=== PATIENT | female | born 1950 | race Asian ===

== ENCOUNTER 2017-01-02 16:12 | Emergency (ER) | payer MEDICARE ==
[~2017-01-02] VITALS: Ht 165.1 cm; Wt 56.7 kg
[2017-01-02 16:30] VITALS: BP 130/82
[2017-01-02] MEDS ORDERED: ATENOLOL25 MG ORAL (16:45)
[2017-01-02 16:59] VITALS: BP 175/80
[2017-01-02] MEDS ORDERED: Aspirin Baby 81mg ORAL ONE (17:00)
[2017-01-02] MEDS ORDERED: Nitroglycerin Subl 0.4mg tab (Bottle Of 25) SL PRN (17:00)
[2017-01-02 17:10] VITALS: BP 144/84
--- NOTE | 2017-01-02 17:10 | Emergency Room Report ---
History of Present Illness General Chief Complaint: General Complaint Source: Patient Present Illness HPI Patient is a 66-year-old female who presented after increased chest pain past 3 hours. Patient had onset of chest tightness which began during rest. Patient stated that she had been out of her atenolol and had a prior history of WPW. Patient stated that she previously had cardiology workup stone at [facility] [address] in [place]. The patient stated that she had prior ablation. The patient had a chest tightness as well as neck pain. This began approximately 3 hours ago. Allergies: Coded Allergies: SULFA (SULFONAMIDE ANTIBIOTICS) (Verified Allergy, Unknown, 01/02/17) Patient History Reviewed Nursing Documentation: PMH: Agreed, PSxH: Agreed Nursing Documentation-PMH Past Medical History: No History, Except For Hx Hypertension: Yes Review of Systems All Other Systems: negative except mentioned in HPI Physical Exam Vital Signs Date Time Temp Pulse Resp B/P Pulse Ox O2 Delivery O2 Flow Rate FiO2 01/02/17 16:25 99.1 78 22 130/82 98 Room Air Sp02 EP Interpretation: reviewed, normal General Appearance: normal inspection, well appearing, no apparent distress, alert, GCS 15 Head: atraumatic ENT: normal ENT inspection, hearing grossly normal, normal voice Neck: normal inspection, full range of motion, supple, no bony tend Respiratory: normal inspection, lungs clear, normal breath sounds, no respiratory distress, no retraction, no wheezing Cardiovascular #1: regular rate, rhythm, no edema Gastrointestinal: normal inspection, normal bowel sounds, non tender, soft, no guarding, no hernia Genitourinary: no CVA tenderness Musculoskeletal: normal inspection, back normal, normal range of motion Neurologic: normal inspection, alert, oriented x3, responsive, rehab nursing tech III-XII nml as tested, speech normal Psychiatric: normal inspection, judgement/insight normal, mood/affect normal Skin: normal inspection, normal color, no rash Medical Decision Making Diagnostic Impression: Primary Impression: STEMI (ST elevation myocardial infarction) Additional Impression: WPW (Nfykk-Wwxdulbei-Myqci syndrome) ER Course Patient presented for chest pain.Differential diagnosis included but was not limited to acute coronary syndrome, pulmonary embolism, pneumonia, aortic dissection, shingles, pneumothorax, aortic dissection, esophageal rupture, pericarditis. Because of complexity of patient's case laboratory testing and imaging studies were ordered. EKG interpreted by me showed anterior ST elevation with reciprocal changes inferiorly. [facility] was contacted for Dr. Dereck Person STEMI transfer. The patient be transferred [facility] prior level of care. Patient was given heparin as well as aspirin and nitroglycerin Labs Test 01/02/17 16:58 White Blood Count 8.7 K/UL (4.8-10.8) Red Blood Count 4.05 M/UL (4.20-5.40) Hemoglobin 15.0 G/DL (12.0-16.0) Hematocrit 40.6 % (37.0-47.0) Mean Corpuscular Volume 100 FL (80-99) Mean Corpuscular Hemoglobin 37.1 PG (27.0-31.0) Mean Corpuscular Hemoglobin Concent 37.0 G/DL (32.0-36.0) Red Cell Distribution Width 11.2 % (11.6-14.8) Platelet Count 189 K/UL (150-450) Mean Platelet Volume 8.4 FL (6.5-10.1) Neutrophils (%) (Auto) 64.0 % (45.0-75.0) Lymphocytes (%) (Auto) 28.4 % (20.0-45.0) Monocytes (%) (Auto) 5.5 % (1.0-10.0) Eosinophils (%) (Auto) 0.3 % (0.0-3.0) Basophils (%) (Auto) 1.7 % (0.0-2.0) Rhythm Strip Diag. Results EP Interpretation: yes Rhythm: NSR, no PVC's, no ectopy Chest X-Ray Diagnostic Results EP Interpretation: Yes Findings: no consolidation, no effusion, no pneumothorax, no acute cardiopulmonary disease Number of Views: 1 Last Vital Signs Date Time Temp Pulse Resp B/P Pulse Ox O2 Delivery O2 Flow Rate FiO2 01/02/17 16:30 99.1 78 22 130/82 98 Room Air Status: unchanged Disposition: XFER SHT-TRM HOSP Condition: Critical Scripts Atenolol* (TENORMIN*) 25 Mg Tablet 25 MG ORAL DAILY, #30 TAB Prov: Royer Harden 01/02/17 Patient Instructions: Palpitations Royer Harden January 02, 2017 17:10
[2017-01-02 17:11] LABS: BASOPHILS % (AUTO) 1.7 % (0.0-2.0); EOSINOPHILS % (AUTO) 0.3 % (0.0-3.0); LYMPHOCYTES % (AUTO) 28.4 % (20.0-45.0); MEAN CORPUSCULAR HEMOGLOBIN 37.1 PG (27.0-31.0); MEAN CORPUSCULAR VOLUME 100 FL (80-99); MEAN PLATELET VOLUME 8.4 FL (6.5-10.1); MONOCYTES % (AUTO) 5.5 % (1.0-10.0); PLATELET COUNT 189 K/UL (150-450); RED BLOOD COUNT 4.05 M/UL (4.20-5.40); RED CELL DISTRIBUTION WIDTH 11.2 % (11.6-14.8); WHITE BLOOD COUNT 8.7 K/UL (4.8-10.8)
[2017-01-02] MEDS ORDERED: Heparin 5000 units/ml inj IV ONE (17:15)
[2017-01-02 17:22] VITALS: BP 144/84
[2017-01-02 17:28] LABS: ALANINE AMINOTRANSFERASE 22 U/L (3-33); ALBUMIN/GLOBULIN RATIO 1.7 (1.0-2.7); ANION GAP 19 (5-15); ASPARTATE AMINO TRANSFERASE 25 U/L (5-40); CALCIUM 9.4 mg/dL (8.6-10.2); CARBON DIOXIDE 22 mEQ/L (20-30); CHLORIDE 101 mEQ/L (98-107); CREATININE 0.6 mg/dL (0.5-0.9); GLOMERULAR FILTRATION RATE > 60 mL/min (>60); HEMOLYSIS 37; POTASSIUM 4.1 mEQ/L (3.4-4.9); SODIUM 142 mEQ/L (135-145); TOTAL PROTEIN 6.8 g/dL (6.6-8.7)
[2017-01-02 17:29] LABS: TROPONIN I < 0.30 ng/mL (<=0.30)
--- NOTE | 2017-01-03 10:44 | Diagnostic Imaging Report ---
Indication: Shortness of breath Technique: Single portable AP view of the chest. Findings: Comparison: None. The bones and extra pulmonary soft tissues, cardiomediastinal silhouette, pulmonary vasculature and parenchyma, and pleural surfaces are unremarkable. IMPRESSION: Negative portable AP chest.
--- NOTE | 2017-01-03 14:25 | Cardiology Report ---
APPROVED REPORT EKG Measurement Heart [id number] Normal sinus rhythm Possible Left atrial enlargement Septal infarct, age undetermined Marked ST abnormality, possible inferior subendocardial injury Abnormal ECG
== END 2017-01-02 17:22 | disposition short-term general hospital (02) ==
LOC: EMR 17:03
DX: I21.3 ST elevation (STEMI) myocardial infarction of unspecified site (principal); I45.6 Pre-excitation syndrome; I10 Essential (primary) hypertension; Z88.2 Allergy status to sulfonamides; M54.2 Cervicalgia
CPT/HCPCS: 36415; 71010; 80053; 84484; 85025; 85730; 93005; 96374; 99285; J1644